=== PATIENT | female | born 1965 | race Caucasian/White ===

== ENCOUNTER 2017-08-12 06:42 | Emergency (ER) | payer MEDICAID ==
[~2017-08-12] VITALS: Ht 167.6 cm; Wt 147.0 kg
[~2017-08-12 06:42] MED LIST: ABIL5TAB6 PO; BUSP5TAB3 PO; CYMB30CA PO; LEVO50TA4 PO; PREG100 PO; b/p med
[2017-08-12 06:49] VITALS: BP 168/79; PULSE 97; RESP 18; TEMP 97.1; O2SAT 93
[2017-08-12] MEDS ORDERED: PERI0.126 SWISH-SPIT (07:14)
[2017-08-12] MEDS ORDERED: MAGICADU2 SWISH-SWAL (07:14)
--- NOTE | 2017-08-12 07:14 | PD ---
HPI Chief Complaint: Oral / Dental Pain or Problem Time Seen by Provider: 07:06 Travel History International Travel<30 days: No Contact w/Intl Traveler<30days: No Traveled to known affect area: No History of Present Illness HPI The patient is a 52-year-old female who presents to the emergency department for painful tongue. The patient states she bit her tongue one and a half weeks ago on the anterior right lateral aspect. The patient states when she bit it was painful, it was bleeding initially, but has currently stopped bleeding. The patient does have a history of previous ulceration secondary to biting. The patient does have a history tobacco use, denies any history of oropharyngeal squamous cell carcinoma. The patient states she's had been unable to see her new physician, Dr. Faby Ruiz. The patient denies any fever , chills, or sweats. She does have a history of poor dentition. Symptoms are mild to moderate, possibly exacerbated after biting her tongue, and there are no current alleviating factors. PFSH Past Medical History Asthma: Yes Autoimmune Disease: No Blood Disorders: No Anxiety: Yes (PANIC ATTACKS) Cancer: No Cardiovascular Problems: Yes (CHF) High Cholesterol: Yes Congestive Heart Failure: Yes COPD: Yes Diabetes: No Diminished Hearing: No Endocrine: No GERD: Yes Genitourinary: No Headaches: Yes Hypertension: Yes Musculoskeletal: Yes (herniated discs, ) Psychiatric: Yes (PTSD) Respiratory: Yes (COPD) Thyroid Disease: No ?: Not Menopausal: Yes Tubal Ligation: Yes Past Surgical History Cholecystectomy: Yes Other Surgery: No Social History Alcohol Use: Yes (COUPLE TIMES PER MONTH) Tobacco Use: Yes (1PPD) Substance Use: No Allergies-Medications (Allergen,Severity, Reaction): Coded Allergies: iodine (Unverified Allergy, Severe, 08/12/17) potassium iodide (Unverified Allergy, Severe, 08/12/17) povidone-iodine (Unverified Allergy, Severe, 08/12/17) sodium iodide (Unverified Allergy, Severe, 08/12/17) Reported Meds & Prescriptions Reported Meds & Active Scripts Active Reported Levothyroxine 50 mcg (Levothyroxine Sodium) 50 Mcg Tab 50 Mcg PO DAILY Lyrica (Pregabalin) 100 Mg Cap 100 Mg PO DAILY [b/p med] Buspar (Buspirone HCl) 5 Mg Tab 5 Mg PO BID Abilify 5 mg (Aripiprazole) 5 Mg Tab 5 Mg PO DAILY Cymbalta (Duloxetine HCl) 30 Mg Cap 30 Mg PO DAILY Review of Systems General / Constitutional: No: Fever HENT: Positive: Other (as noted in the history present illness) Skin: Positive Other (tongue lesion as previously noted) Hematologic/Lymphatic: No: Other (denies any history of oropharyngeal squamous cell carcinoma) Physical Exam Narrative GENERAL: Awake, alert, nontoxic-appearing 52-year-old female who appears her stated age and is in no acute respiratory distress. SKIN: Focused skin assessment warm/dry. HEAD: Atraumatic. Normocephalic. EYES: Pupils equal and round. No scleral icterus. No injection or drainage. ENT: No nasal bleeding or discharge. Oropharynx reveals multiple missing teeth. On the lateral anterior aspect of the tongue there is 1.5 cm lesion, no other visible ulcers noted. NECK: Trachea midline. No JVD. MUSCULOSKELETAL: No obvious deformities. No clubbing. No cyanosis. No edema. NEUROLOGICAL: Awake and alert. No obvious cranial nerve deficits. Motor grossly within normal limits. Normal speech. PSYCHIATRIC: Appropriate mood and affect; insight and judgment normal. Data Data Last Documented VS Vital Signs Date Time Temp Pulse Resp B/P (MAP) Pulse Ox O2 Delivery O2 Flow Rate FiO2 08/12/17 06:49 97.1 97 18 168/79 (108) 93 MDM Medical Decision Making Medical Screen Exam Complete: Yes Emergency Medical Condition: Yes Medical Record Reviewed: Yes Differential Diagnosis Differential diagnosis includes squamous cell carcinoma, aphthous ulcer, stomatitis, tongue lesion, tongue trauma. Narrative Course The patient states the lesion has been present for one and a half weeks after biting her tongue with initial pain and trauma. The patient notes continuing pain from the affected area but states the bleeding has stopped. She denies any known history of oropharyngeal squamous cell carcinoma but does have a history of tobacco use. The patient will be placed on Magic mouthwash and Peridex, is advised to follow-up with [facility] if lesion persists for biopsy to rule out squamous cell carcinoma. Diagnosis Primary Impression: Tongue lesion Patient Instructions: General Instructions Additional Instructions: Follow-up with [facility]. Magic mouthwash and Peridex as directed. Follow-up with your primary physician. Stop smoking. Med/Other Pt SpecificInfo: Prescription(s) given Scripts Xqmvexqf-Ichmnlqjrnnxsbj-Zzladtuku Liq (Magic Mouthwash Adult Liq) 120 Ml Susp 5 ML SWISH-SWAL ACHS for Mouth sores, #120 ML 0 Refills Each 5mL contains: Nystatin 200,000units, Diphenhydramine 4.25mg, Viscous Lidocaine 10mg, Rabago syrup 0.8 mL Prov: Garret Tavera MD 08/12/17 Chlorhexidine Gluconate (Mouth) Liq (Peridex Liq) 0.12% Soln 15 ML SWISH-SPIT BID, #473 ML 0 Refills Prov: Garret Tavera MD 08/12/17 Disposition: 01 DISCHARGE HOME Condition: Stable Garret Tavera MD Aug 12, 2017 07:14
== END 2017-08-12 07:32 | disposition home or self-care (01) ==
LOC: PHEFT 06:42
DX: K13.70 Unspecified lesions of oral mucosa (principal); I11.0 Hypertensive heart disease with heart failure; I50.9 Heart failure, unspecified; J44.9 Chronic obstructive pulmonary disease, unspecified; K21.9 Gastro-esophageal reflux disease without esophagitis; F17.210 Nicotine dependence, cigarettes, uncomplicated; E78.00 Pure hypercholesterolemia, unspecified
CPT/HCPCS: 99283